=== PATIENT | female | born 1985 | race Caucasian/White ===

== ENCOUNTER 2016-10-24 22:46 | Inpatient (IN) | payer OTHER ==
[2016-10-25] MEDS ORDERED: Dibucaine 1% 28.35 GM TUBE PR PRN (01:58)
[2016-10-25] MEDS ORDERED: Acetaminophen TAB* 325 MG PO PRN (01:58)
[2016-10-25] MEDS ORDERED: Witch Hazel PAD* JAR TOPICAL PRN (01:58)
[2016-10-25] MEDS ORDERED: oxyCODONE/Acetamin 5/325 MG* TAB PO PRN (01:58)
[2016-10-25] MEDS: Docusate CAP* 100 MG PO SCH ×3 (09:39→20:53)
[2016-10-25] MEDS: Ibuprofen TAB* 600 MG PO PRN ×2 (09:41→15:51)
[2016-10-26] MEDS: Ibuprofen TAB* 600 MG PO PRN (04:14)
[2016-10-26 06:01] LABS: Hematocrit 32 % (35-47); Hemoglobin 10.8 g/dl (12.0-16.0); Mean Corpuscular HGB Conc 34 g/dl (31-36); Mean Corpuscular Hemoglobin 31 pg (27-31); Mean Corpuscular Volume 92 fL (80-97); Mean Platelet Volume 10 um3 (7.4-10.4); Red Blood Count 3.47 10^6/ul (4.0-5.4); Red Cell Distribution Width 13 % (10.5-15); White Blood Count 8.8 10^3/ul (3.5-10.8)
[2016-10-26] MEDS: Docusate CAP* 100 MG PO SCH ×2 (07:41→13:07)
[2016-10-26 07:44] VITALS: BP 106/61
[2016-10-26] MEDS ORDERED: Ferrous Gluconate TAB* 324 MG TAB PO SCH (09:00)
== END 2016-10-26 14:19 | disposition home or self-care (01) | DRG 560 ==
LOC: MCHOBOUT 22:46 → MCHOB 23:31
PROVIDERS: ADMIT Nurse Practitioner; ATTEND Nurse Practitioner
PROC: 10907ZC Drainage of Amniotic Fluid, Therapeutic from Products of Conception, Via Natural or Artificial Opening (ICD-10-PCS; principal; 2016-10-25)
PROC: 10E0XZZ Delivery of Products of Conception, External Approach (ICD-10-PCS; 2016-10-25)
PROC: 0KQM0ZZ Repair Perineum Muscle, Open Approach (ICD-10-PCS; 2016-10-25)
DX: O48.0 Post-term pregnancy (principal); O70.1 Second degree perineal laceration during delivery; Z14.1 Cystic fibrosis carrier; Z3A.41 41 weeks gestation of pregnancy; Z37.0 Single live birth
CPT/HCPCS: 36415; 85025; A9270-GY

== ENCOUNTER 2017-08-21 15:48 | Emergency (ER) | payer OTHER ==
[2017-08-21 16:12] VITALS: BP 125/71
[2017-08-21] MEDS ORDERED: Fluorescein Sodium TOPICAL* 1 MG TEST OPHTHALMIC ONE (16:14)
[2017-08-21] MEDS ORDERED: Tetracaine 0.5% OPTH.SOL 4 ML* 1 DROP BTL LEFT EYE ONE (16:14)
[2017-08-21] MEDS ORDERED: Eye Irrigation Solution 30 ML BOTTLE LEFT EYE ONE (16:15)
[2017-08-21] MEDS ORDERED: Tetracaine 0.5% OPTH.SOL 15ML* BTL LEFT EYE ONE (17:00)
[2017-08-21] MEDS ORDERED: Tetracaine 0.5% OPTH.SOL 15ML* BTL ONE (17:13)
--- NOTE | 2017-09-09 07:07 | UC ---
Eye Complaint HPI - HPI Summary HPI Summary: 31 YEAR OLD FEMALE PRESENTS WITH LEFT EYE PAIN SECONDARY TO WITH HYDROGEN PEROXIDE. - History of Current Complaint Chief Complaint: UCEye Stated Complaint: EYE PAIN Time Seen by Provider: 08/21/17 16:04 Hx Obtained From: Patient Hx Last Menstrual Period: 07/06/17 Onset/Duration: Sudden Onset Timing: Constant Severity Initially: Moderate Severity Currently: Moderate Pain Intensity: 8 Pain Scale Used: 0-10 Numeric - Allergies/Home Medications Allergies/Adverse Reactions: Allergies Allergy/AdvReac Type Severity Reaction Status Date / Time No Known Allergies Allergy Verified 08/21/17 16:11 PMH/Surg Hx/FS Hx/Imm Hx Previously Healthy: Yes Other History Of: Negative For: Anticoagulant Therapy - Surgical History Surgical History: None - Family History Known Family History: Positive: None Family History: no cardio-vascular history in family - Social History Alcohol Use: None Substance Use Type: None Smoking Status (MU): Never Smoked Tobacco - Immunization History Most Recent Influenza Vaccination: 08/20/13 Most Recent Tetanus Shot: 09/17/13 Most Recent Pneumonia Vaccination: none Review of Systems Constitutional: Negative Skin: Negative Eyes: Drainage, Eye Redness ENT: Negative Respiratory: Negative Cardiovascular: Negative Gastrointestinal: Negative Genitourinary: Negative Motor: Negative Neurovascular: Negative Musculoskeletal: Negative Neurological: Negative Psychological: Negative All Other Systems Reviewed And Are Negative: Yes Physical Exam Triage Information Reviewed: Yes Vital Signs: Initial Vital Signs Temp 37.6 C 08/21/17 16:05 Pulse 78 08/21/17 16:05 Resp 16 08/21/17 16:05 BP 125/71 08/21/17 16:05 Pulse Ox 100 08/21/17 16:05 Vital Signs Reviewed: Yes Eyes: Positive: Conjunctiva Inflamed ENT Exam: Normal Dental Exam: Normal Neck exam: Normal Neck: Positive: 1 Respiratory Exam: Normal Cardiovascular Exam: Normal Abdominal Exam: Normal Musculoskeletal Exam: Normal Neurological Exam: Normal Psychological Exam: Normal Skin Exam: Normal Eye Complaint Course/Dx - Course Course Of Treatment: TETRACAINE, DULCE LENS, LR, FLUOROSCEIN - Differential Dx/Diagnosis Provider Diagnoses: CORENAL ABRASION. LEFT EYE PAIN Discharge - Discharge Plan Condition: Stable Disposition: HOME Prescriptions: Ciprofloxacin 0.3% OPTH.THOM* [Cipro 0.3% Opth*] 1 drop LEFT EYE Q4H #1 btl Patient Education Materials: Corneal Abrasion (ED), Eye Pain (ED) Referrals: Ronak Garcia III, NP [Primary Care Provider] - Hermes Morrell MD [Medical Doctor] -
== END 2017-08-21 17:20 | disposition home or self-care (01) ==
LOC: UCEAST 15:48
DX: S05.02XA Injury of conjunctiva and corneal abrasion without foreign body, left eye, initial encounter (principal); X58.XXXA Exposure to other specified factors, initial encounter; Y93.9 Activity, unspecified; Y92.9 Unspecified place or not applicable; H57.12 Ocular pain, left eye
CPT/HCPCS: 99213; A9270-GY; G0463

== ENCOUNTER 2018-05-03 07:50 | Inpatient (IN) | payer BC ==
[2018-05-03] MEDS ORDERED: Oxytocin in LR* 20 UNITS/1,000 ML BAG IVPB SCH (09:00)
[2018-05-03] MEDS ORDERED: Oxytocin in LR* 20 UNITS/1,000 ML BAG IVPB ONE (09:07)
[2018-05-03 09:24] LABS: ABS Basophils 0 10^3/ul (0-0.2); ABS Eosinophils 0.1 10^3/ul (0-0.6); ABS Lymphocytes 1.3 10^3/ul (1.0-4.8); ABS Monocytes 0.5 10^3/ul (0-0.8); ABS Nucleated RBC 0 10^3/ul; Eosinophil % 1.1 % (0-6); Hematocrit 37 % (35-47); Hemoglobin 12.7 g/dl (12.0-16.0); Lymphocyte % 18.8 % (25-47); Mean Corpuscular HGB Conc 35 g/dl (31-36); Mean Corpuscular Hemoglobin 31 pg (27-31); Mean Corpuscular Volume 90 fL (80-97); Mean Platelet Volume 10.4 um3 (7.4-10.4); Nucleated Red Blood Cells % 0.1; Platelet Count 148 10^3/ul (150-450); Red Blood Count 4.08 10^6/ul (4.00-5.40); Red Cell Distribution Width 14 % (10.5-15); White Blood Count 6.9 10^3/ul (3.5-10.8)
--- NOTE | 2018-05-03 10:34 | HP ---
General Information - Reason for Visit Post-dates induction of labor - General Information Maternal Age: 32 Grav: 3 Para: 2 SAB: 0 IEA: 0 Estimated Due Date: 04/26/18 Determined By: Early Ultrasound Maternal Blood Type and Rh: AB Positive - Results this Serology/RPR Result: Non-Reactive Rubella Result: Immune HBsAg Result: Negative HIV Result: Negative GBS Culture Result: Negative Past Medical History Delivery History: Hx Uncomplicated Vaginal Delivery, Hx Complicated Vaginal Delivery - 3rd degree laceration with first Pertinent Past Medical History: See Records Past Medical History Comment: PCOS, occasional migraines, back pain Pertinent Past Surgical History: None Pertinent Family History: Non-Contributory - Antepartal Records Antepartal Records: Reviewed, Uncomplicated Review of Systems Constitutional: Comfortable CV Complaint: No Respiratory: Shortness of Breath: No Gastrointestinal: Normal Bowel Movement - Pt has had nausea for last week, taking zofran ODT, Nausea Genitourinary: No Dysuria, No Bleeding, No Leaking Fluid Musculoskeletal: No Complaint Neurological: No Headache Movement: Normal Exam Allergies/Adverse Reactions: Allergies No Known Allergies Allergy (Verified 04/25/18 19:01) T-98.0, P-65, R-18, O2- 100%, BP-131/71 Lab Values - Entire Visit: Laboratory Tests 05/03/18 05/03/18 08:55 08:55 WBC 6.9 RBC 4.08 Hgb 12.7 Hct 37 MCV 90 MCH 31 MCHC 35 RDW 14 Plt Count 148 L MPV 10.4 Neut % (Auto) 72.5 Lymph % (Auto) 18.8 L [place] % (Auto) 7.3 H Eos % (Auto) 1.1 Baso % (Auto) 0.3 Absolute Neuts (auto) 5.0 Absolute Lymphs (auto) 1.3 Absolute Monos (auto) 0.5 Absolute Eos (auto) 0.1 Absolute Basos (auto) 0 Absolute Nucleated RBC 0 Nucleated RBC % 0.1 Blood Type AB Positive Antibody Screen Negative - Measurements Height: 5 ft 7 in Weight: 92.533 kg Weight in lbs: 204.815560 Body Mass Index (BMI): 31.9 Pre- Weight: 86.183 kg Weight Gained This : 14 lbs and 0 ozs - Exam Breast: Breast Exam Deferred CVA: No CVA Tenderness Extremities: No Edema Heart: Normal Rhythm/Heart Sounds HEENT: No Significant Findings Lungs: Clear Bilaterally Rectal: Rectal Exam Deferred Reflexes: DTR 2+ Thyroid: No Thyromegaly - Abdominal Exam Abdomen Exam: Non-Tender, Fundal Height Consistent with Dates - Ultrasound/Biophysical Profile Ultrasound Status: Not Done Targeted Exam Findings See L&D Outpatient Visit Provider Note for Findings: N/A Estimated Weight: 8# Cervical Exam: 2cm Effacement: 50% Station: -3 Presenting Part: Vertex Membrane Status: Intact Bleeding/Discharge: None EFM Findings - External Monitor Findings Baseline Heart Rate: 130 External Monitor Findings: Accelerations Present, No Pattern of Variable or Late Decelerations, Variability Moderate, Baseline Stable Contractions: Regular, Mild, 45-90 Seconds Contraction Frequency: 2-3 minutes Assessment/Plan - Assessment 32 year old at 41 0/7 weeks gestation here for induction of labor - Obstetrical Risk Factors Obstetrical Risk Factors: Post-Dates - Plan [facility] OB: H&P Plan: Induction - Date/Time of Admission Date of Admission: 05/03/18 Time of Admission: 08:20
[2018-05-03] MEDS ORDERED: Ondansetron ODT TAB* 4 MG ONE (13:05)
[2018-05-03] MEDS: Ondansetron ODT TAB* 4 MG PO PRN (13:07)
[2018-05-03] MEDS ORDERED: Dibucaine 1% 28.35 GM TUBE PR PRN (18:49)
[2018-05-03] MEDS ORDERED: Glycerin ADULT SUPP PR PRN (18:49)
[2018-05-03] MEDS ORDERED: Acetaminophen TAB* 325 MG PO PRN (18:49)
[2018-05-03] MEDS ORDERED: Witch Hazel PAD* JAR TOPICAL PRN (18:49)
[2018-05-03] MEDS: Docusate CAP* 100 MG PO SCH (21:40)
[2018-05-03] MEDS: Ibuprofen TAB* 600 MG PO PRN (21:40)
--- NOTE | 2018-05-03 23:23 | PROCNOTE ---
[facility] OB: Delivery Note - Delivery A Date of : 05/03/18 Time of : 17:43 [place] Weight at : 3.891 kg Score 1 Minute: 8 Score 5 Minutes: 9 Gestational Age in Weeks and Days at Delivery: 41 Weeks and 0 Days Delivery Method: Spontaneous Vaginal Labor: Induced Did Patient attempt ?: N/A, No Previous Amniotic Fluid: Meconium Estimated Blood Loss: 300 Anesthesia/Analgesia: None Delivered By: Jessica Guzman Nursery Level of Nursery: Regular/Bedside - Perineum Perineal Injury: Perineal Laceration, 2nd Degree Perineal Repair: By Delivering Practioner - Events Delivery Events of Note: Pitocin During Labor - Additional Delivery Notes Additional Delivery Notes: Pt admitted for postdates IOL of 3rd baby at 41 0/7 weeks with a favorable cervix. IOL initiated using Pitocin. Pt progressed to 6cm dilation, at which time AROM was performed revealing meconium-stained fluid. Pt quickly progressed to full dilation and began spontaneous pushing efforts, three minutes later birthing a viable female . Infant placed on maternal abdomen. After pulsation ceased cord clamped x2, cut by baby's father. Shortly after, pt birthed the placenta, Patricia side, complete. Exam revealed second degree perineal laceration, repaired in the usual fashion with absorbable suture resulting in good hemostasis and tissue approximation. breastfed during repair. Mom and baby in stable condition.
[2018-05-04 06:11] LABS: ABS Basophils 0.1 10^3/ul (0-0.2); ABS Eosinophils 0 10^3/ul (0-0.6); ABS Lymphocytes 1.7 10^3/ul (1.0-4.8); ABS Monocytes 0.7 10^3/ul (0-0.8); ABS Neutrophils 8.1 10^3/ul (1.5-7.7); ABS Nucleated RBC 0 10^3/ul; Eosinophil % 0.4 % (0-6); Hematocrit 35 % (35-47); Hemoglobin 12.4 g/dl (12.0-16.0); Lymphocyte % 16.2 % (25-47); Mean Corpuscular HGB Conc 35 g/dl (31-36); Mean Corpuscular Hemoglobin 32 pg (27-31); Mean Corpuscular Volume 90 fL (80-97); Mean Platelet Volume 10.6 um3 (7.4-10.4); Nucleated Red Blood Cells % 0; Platelet Count 147 10^3/ul (150-450); Red Blood Count 3.91 10^6/ul (4.00-5.40); Red Cell Distribution Width 13 % (10.5-15); White Blood Count 10.6 10^3/ul (3.5-10.8)
[2018-05-04] MEDS: Ibuprofen TAB* 600 MG PO PRN ×2 (06:36→12:43)
[2018-05-04] MEDS ORDERED: Ferrous Gluconate TAB* 324 MG TAB PO SCH (09:00)
[2018-05-04] MEDS: Docusate CAP* 100 MG PO SCH ×3 (09:11→17:19)
[2018-05-04] MEDS ORDERED: Ondansetron TAB* 4 MG PO ONE (14:11)
[2018-05-04] MEDS: Ondansetron ODT TAB* 4 MG PO PRN (14:16)
[2018-05-04 16:52] VITALS: BP 133/79
== END 2018-05-04 18:58 | disposition home or self-care (01) | DRG 560 ==
LOC: MCHOBOUT 07:50 → MCHOB 08:21
PROVIDERS: ADMIT Midwife; ATTEND Midwife
PROC: 3E033VJ Introduction of Other Hormone into Peripheral Vein, Percutaneous Approach (ICD-10-PCS; principal; 2018-05-03)
PROC: 10E0XZZ Delivery of Products of Conception, External Approach (ICD-10-PCS; 2018-05-03)
PROC: 4A1HX4Z Monitoring of Products of Conception, Cardiac Electrical Activity, External Approach (ICD-10-PCS; 2018-05-03)
PROC: 10907ZC Drainage of Amniotic Fluid, Therapeutic from Products of Conception, Via Natural or Artificial Opening (ICD-10-PCS; 2018-05-03)
PROC: 0KQM0ZZ Repair Perineum Muscle, Open Approach (ICD-10-PCS; 2018-05-03)
DX: O48.0 Post-term pregnancy (principal); O70.1 Second degree perineal laceration during delivery; O77.0 Labor and delivery complicated by meconium in amniotic fluid; Z3A.41 41 weeks gestation of pregnancy; Z37.0 Single live birth
CPT/HCPCS: 36415; 85025; 86850; 86900; 86901; A9270-GY